=== PATIENT | female | born 1990 | race Caucasian/White ===

== ENCOUNTER → 2017-04-24 | Day surgery (SDC) | payer OTHER ==
[~2017-04-24] VITALS: Ht 165.1 cm; Wt 53.1 kg
[~2017-04-24] MED LIST: AUGMENTIN 875 M1 TAB PO; AUGMENTIN 875-1 EACH PO; DEXAMETHASONE4 M1 PO; Magic mouthwash PO; NUVARING VAGIN1 EACH VG; NUVARING1 ICR VG; ULTRAM50 M1 PO
[2017-04-24 08:43] LABS: ABSOLUTE BASOPHIL COUNT 0 /CUMM (0.0-0.2); ABSOLUTE EOSINOPHIL COUNT 0.1 /CUMM (0.0-0.7); ABSOLUTE GRANULOCYTE CT 2.6 /CUMM (1.4-6.5); ABSOLUTE LYMPH COUNT 2.1 /CUMM (1.2-3.4); ABSOLUTE MONOCYTE COUNT 0.5 /CUMM (0.10-0.60); BASOPHIL % 0.3 % (0.0-2.0); GRANULOCYTE % 49.5 % (42.2-75.2); MEAN CORPUSCULAR HGB 28.5 PG (27.0-31.0); MEAN CORPUSCULAR HGB CONC 33.7 G/DL (33.0-37.0); MEAN CORPUSCULAR VOLUME 84.4 FL (81.0-99.0); MEAN PLATELET VOLUME 7.6 FL (7.4-10.4); PLATELET COUNT 241 /CUMM (130-400); RBC DISTRIBUTION WIDTH 13.4 % (11.5-14.5); RED BLOOD CELL CT 4.62 /CUMM (4.20-5.40); WHITE BLOOD CELL COUNT 5.2 /CUMM (4.8-10.8)
[2017-04-24 09:00] LABS: PT 11.2 SEC (9.4-12.5); PTT 26 SEC (25-37)
--- NOTE | 2017-04-24 11:33 | Operative Report ---
Operative/Inv Procedure Report Surgery Date: 04/24/17 Name of Procedure: Tonsillectomy Pre-Operative Diagnosis: Chronic tonsillitis Tonsillar hypertrophy Post-Operative Diagnosis: Same Estimated Blood Loss: scant Surgeon/Paving Rammer: Shyla Aguilar MD Anesthesia: general endotracheal tube Specimens: Tonsils Microbiology: none Complications: Non- Condition: Stable on leaving the OR Operative Indication: Recurrent tonsillitis Concretions forming within the tonsils with bad breath and bad taste Patient has been treated with recurrent courses of antibiotics with improvement but then recurrence Operative/Procedure Note Note: Patient was brought to the operating room. Placed on the operating table in supine position. First timeout was performed including patient's name, ID number and planned procedure. Then general orotracheal anesthesia was induced. Endotracheal tube was taped in the midline. Oral cavity was exposed with oral cavity retractor, endotracheal tube positioned in the midline over the tongue. Soft palate was palpated. There was no submucous cleft. Nasopharynx was visualized with a mirror. The nasopharynx was widely patent without evidence of adenoid hypertrophy. Soft palate was palpated and there was no submucous cleft. Tonsils were inspected. Tonsils were markedly enlarged with significant exophytic and endophytic component. For this dissection pencil bovie with a blade was used set on cautery of 15 and cut 5. Right tonsil was grasped with curved Allis, incision was placed over the anterior superior pole of the mucosa only. Tonsil capsule was identified and dissection was carried from superior to inferior until the entire tonsil was removed. Next the left tonsil was grasped with curved Allis. Incision was placed with the Bovie over the anterior-superior pole through the mucosa only. Tonsillar capsule was identified and dissection carried from the superior to the inferior until the entire tonsil was removed. At the end of the procedure tonsillar fossa was inspected for bleeders. Additional cautery was carried to assure adequate hemostasis. During dissection both tonsils were scarred down onto the tonsillar fossa. Surgery was completed. Stomach was suctioned with an OG tube. The patient was reawakened, extubated and taken to the recovery room in good condition. There were no complications. Estimated blood loss was minimal. Findings: Tonsils 4+ with marked exophytic and endophytic component, markedly scarred down onto the tonsillar fossa, great deal of concretions Discharge Disposition: PACU
== END ==
LOC: STS 02:32
PROVIDERS: Otolaryngology
DX: J35.01 Chronic tonsillitis (principal); R19.6 Halitosis
CPT/HCPCS: 36415; 81025; 88304; C9399; J0131; J0690; J2250; J2405